=== PATIENT | male | born 1970 | race Caucasian/White ===

== ENCOUNTER 2021-09-22 09:00 | Day surgery (SDC) | payer MEDICARE ==
[~2021-09-22] VITALS: Ht 177.8 cm; Wt 90.9 kg
[~2021-09-22 09:00] MED LIST: LIDOcaine Viscous 15ml cup ONE; MIDAZolam 1 MG/ML 5ML VIAL ONE; diphenhydrAMINE 50 mg/ml inj ONE; fentaNYL/PF 50MCG/1 ML 2ML syringe ONE
[2021-09-22 09:20] VITALS: BP 115/81
[2021-09-22] MEDS ORDERED: viagra PO (09:51)
[2021-09-22] MEDS ORDERED: BACL20TA PO (09:52)
[2021-09-22] MEDS ORDERED: CLON0.3T PO (09:56)
[2021-09-22] MEDS ORDERED: TRIA1CAP88 PO (09:57)
[2021-09-22] MEDS ORDERED: LORA-269 PO (09:58)
[2021-09-22] MEDS ORDERED: norco 10/325 PO (10:07)
[2021-09-22] MEDS ORDERED: HYDR-3965 PO (10:09)
[2021-09-22 10:10] VITALS: BP 113/82
[2021-09-22] MEDS ORDERED: POTA10TA21 PO (10:10)
[2021-09-22] MEDS ORDERED: METO50TA16 (10:11)
[2021-09-22] MEDS ORDERED: RISEDRONATE (10:12)
[2021-09-22] MEDS ORDERED: benedryl (10:12)
[2021-09-22] MEDS ORDERED: ESOM20CA PO (10:13)
[2021-09-22] MEDS ORDERED: ASPI-611 PO (10:13)
[2021-09-22] MEDS ORDERED: MELA5TAB12 PO (10:14)
[2021-09-22] MEDS ORDERED: [UNRECOGNIZED DRUG - CODE] PO (10:14)
[2021-09-22] MEDS ORDERED: OMEG-79 PO (10:15)
[2021-09-22 10:20] VITALS: BP 119/82
[2021-09-22 10:30] VITALS: BP 122/81
[2021-09-22 10:40] VITALS: BP 120/74
== END 2021-09-22 11:10 | disposition home or self-care (01) ==
LOC: GI LAB 09:00
PROVIDERS: ATTEND Internal Medicine Gastroenterology
DX: R10.13 Epigastric pain (principal); R12 Heartburn; K92.1 Melena; K29.51 Unspecified chronic gastritis with bleeding; I10 Essential (primary) hypertension; G82.20 Paraplegia, unspecified; F17.210 Nicotine dependence, cigarettes, uncomplicated; K74.60 Unspecified cirrhosis of liver; Z88.8 Allergy status to other drugs, medicaments and biological substances; Z88.1 Allergy status to other antibiotic agents; Z79.899 Other long term (current) drug therapy
CPT/HCPCS: 43239; G0500; J1200; J2250; J3010; J7030; Z7512; 99152; A4620

== ENCOUNTER 2025-01-02 10:52 | Day surgery (SDC) | payer MEDICARE ==
[~2025-01-02] VITALS: Ht 177.8 cm; Wt 90.9 kg
[2025-01-02] VITALS (10 sets, daily range): BP systolic 95–142; BP diastolic 70–100; PULSE 64–79; RESP 13–17; TEMP 98.1; O2SAT 93–97
[~2025-01-02 10:52] MED LIST changes: +ASPI-611 PO; +BACL20TA PO; +CLON0.3T PO; +ESOM20CA PO; +HYDR-3965 PO; -LIDOcaine Viscous 15ml cup ONE; +LORA-269 PO; +MELA5TAB12 PO; +METO50TA16 PO; -MIDAZolam 1 MG/ML 5ML VIAL ONE; +OMEG-79 PO; +RISEDRONATE; +TRIA1CAP88 PO; +[UNRECOGNIZED DRUG - CODE] PO; +[UNRECOGNIZED DRUG - CODE] PO; +benedryl; -diphenhydrAMINE 50 mg/ml inj ONE; -fentaNYL/PF 50MCG/1 ML 2ML syringe ONE; +norco 10/325 PO; +viagra PO
--- NOTE | 2025-01-02 11:30 | ELECTROCARDIOGRAPH REPORT ---
[facility] Test Date: 2025-01-02 Test Time: 11:27:52 Pat Name: NICK ROBLEDO Department: [facility] Patient ID: [id number] Room: Gender: M Improvement Intern: : 1970 Requested By: MARCELINA WELLINGTON Order Number: [id number] Reading MD: Dr. QUINTIN Wellington Measurements Intervals [place] Rate: 74 P: 49 VT: 130 QRS: 62 QRSD: 92 T: 46 QT: 390 QTc: 433 Interpretive Statements Sinus rhythm Electronically Signed On 01-02-2025 14:44:[address] QUINTIN Wellington Please click the below link to view image of tracing.
[2025-01-02] MEDS ORDERED: TRAZ-256 PO (11:45)
[2025-01-02] MEDS ORDERED: POTA10CA95 PO (11:45)
[2025-01-02] MEDS ORDERED: FURO40TA4 PO (11:45)
[2025-01-02] MEDS ORDERED: SPIR100T5 PO (11:45)
[2025-01-02] MEDS ORDERED: METAMUCIL (11:58)
[2025-01-02] MEDS ORDERED: ASCO100T10 (11:58)
[2025-01-02] MEDS ORDERED: LOPE-190 PO (11:58)
[2025-01-02] MEDS ORDERED: DIPH25TA62 PO (11:58)
[2025-01-02] MEDS ORDERED: DENO60DI SUBCUT (11:58)
[2025-01-02] MEDS ORDERED: SILD25TA PO (11:58)
[2025-01-02] MEDS ORDERED: MILK THISTLE (11:58)
[2025-01-02] MEDS ORDERED: [UNRECOGNIZED DRUG - OTHER] (11:58)
[2025-01-02] MEDS ORDERED: MAGN100T5 PO (11:58)
[2025-01-02] MEDS ORDERED: PROBIOTIC (11:58)
[2025-01-02] MEDS ORDERED: GLUC-193 (11:58)
[2025-01-02] MEDS ORDERED: CLOT10TR5 PO (11:58)
[2025-01-02] MEDS ORDERED: MULT-1085 PO (11:58)
[2025-01-02 12:15] LABS: MEAN PLATELET VOLUME 7.2 FL (7.4-10.4); RED CELL DISTRIBUTION WIDTH 19.4 % (11.5-14.5)
[2025-01-02 12:23] LABS: CREATININE 0.61 MG/DL (0.60-1.10); TOTAL CARBON DIOXIDE 29.5 MMOL/L (24-32); eCRCL 145 ML/MIN; eGFR > 90 ML/MIN
[2025-01-02] MEDS ORDERED: LIDOcaine 1% (10mg/ml) 2ml vial ONE (12:23)
[2025-01-02] MEDS ORDERED: verapamil 2.5 mg/ml inj IV ONE (12:23)
[2025-01-02] MEDS ORDERED: midazolam 1 mg/ML 2ml injection ONE (12:24)
[2025-01-02] MEDS ORDERED: iohexol 350 MG/ML 50ML vial IV ONE (12:24)
[2025-01-02] MEDS ORDERED: fentaNYL/PF 50MCG/1 ML 2ML syringe ONE (12:24)
[2025-01-02] MEDS ORDERED: heparin 1,000unit/ml 10ml vial 10 ML ONE (12:24)
[2025-01-02 12:26] LABS: APTT 31 SECONDS (22-32); INR 1.2 INR
[2025-01-02 12:30] LABS: LARGE PLATELETS FEW; PLATELET ESTIMATE NORMAL
[2025-01-02] MEDS ORDERED: nitroGLYCERIN 500mcg/5mL D5W 5 ML IV ONE (12:30)
[2025-01-02 14:49] LABS: ISTAT HGB ART 11.6 g/dl (14.0-17.9); ISTAT Hct ART 34 %PCV (42-52); ISTAT O2 SATURATION ARTERIAL 96 % (95-98); ISTAT SOURCE BLNK
[2025-01-02 14:49] LABS: ISTAT HGB MIX 11.2 g/dl (14.0-17.9); ISTAT Hct MIX 33 %PCV (42-52); ISTAT O2 SATURATION MIX VENOUS 57 % (60-80); ISTAT SOURCE BLNK
[2025-01-02] MEDS ORDERED: normal saline 1000ml 1,000 ML IV SCH (14:50)
[2025-01-02] MEDS ORDERED: HYDROcodone/acetaminophen 5mg/325mg tablet PO PRN (14:50)
[2025-01-02] MEDS ORDERED: HYDROcodone/acetaminophen 10/325mg tab PO PRN (14:50)
--- NOTE | 2025-01-03 08:09 | CARDIOLOGY REPORT ---
DATE OF SERVICE: 01/02/2025 DICTATING PHYSICIAN: QUINTIN Gross MD GENDER: Male. AGE: 54 years. HEIGHT: 178 cm. WEIGHT: 90.19 kg. BODY SURFACE AREA: 2.09 m2. INDICATION: A 54-year-old male with obesity, history of paraplegia, nonobstructive CAD, seizure disorder, hyperlipidemia, cirrhosis, insomnia, and osteoporosis. PRIMARY DOCTOR: Dr. Uriostegui in [place]. 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 He is currently wheelchair dependent. He uses marijuana every day. History of alcohol abuse, now a social drinker. Apparently, he had a CT with contrast, which had shown some CAD evidence and he had a myocardial perfusion scan, which showed fixed defect, no reversibility, distal septal hypokinesis; however, in view of his fatigue, shortness of breath, the patient prefers to have definitive evaluation. Risks, benefits, and alternative options were discussed. Informed consent was obtained. PROCEDURE TECHNIQUE: The patient underwent right heart catheterization from right antecubital approach, a 6-Uk[place] sheath. Post-procedure access site hemostasis secured with manual compression. The patient had a left heart catheterization from right radial approach, 6-[place]rainian right radial sheath. Post-procedure access site hemostasis secured with right radial band. The patient tolerated the procedure well. COMPLICATION: None. PROCEDURES DONE: 1. Ultrasound-guided right radial artery visualization and access. 2. Right heart catheterization. 3. Left heart catheterization. 4. LVG. 5. Coronary cineangiography. 6. Conscious sedation time of 45 minutes. FINDINGS: HEMODYNAMICS: Aortic systolic 101 mmHg, diastolic 67 mmHg, mean 82 mmHg. LVEDP of 18 mmHg. There is no significant gradient across the aortic valve. Right atrial mean 4 mmHg, RV 18/4 mmHg, PA 24/11 mmHg, pulmonary capillary 6 mmHg, aortic oxygen saturation 96%, pulmonary arterial oxygen saturation 57%. Cardiac output by thermodilution method is 5.52 L/min. Cardiac index was 2.64 L/min/m2. LEFT VENTRICULOGRAM: Overall left ventricular systolic function normal with LV ejection fraction of about 65% to 70%. CORONARY CINEANGIOGRAPHY: JL4 and JL3.5 did not give adequate engagement coming from right radial approach. Brachiocephalic trunk arises more from the left side of the aortic arch, which added an additional tortuosity and difficulty in torquiability of the catheters. We were able to engage the left main coronary artery with XP3 guide. Left main is a large caliber, arising from the left aortic sinus with minimal luminal irregularities. Very short left main. LAD is a medium caliber vessel arising at the trifurcation of left main coronary artery, courses through the anterior interventricular groove, ends by wrapping around the apex. Diagonal is 2 mm caliber with mild luminal irregularities. Ramus is 2.75 mm with mild luminal irregularities. Circumflex artery is a small nondominant vessel arising at the trifurcation, continues as OM, which is a 2 mm with minimal luminal irregularities. Right coronary artery is a medium caliber dominant vessel, arising at the right aortic sinus, courses through the right AV groove and ends at the posterior crux by dividing into PDA and posterolateral branches. Proximal RCA has 40% and mid distal RCA at the junction of mid low one-third has 60% narrowing. Remainder of the RCA shows mild luminal irregularities. IMPRESSION: 1. A 54-year-old male with an ejection fraction of 65% to 70%. 2. Left ventricular end-diastolic pressure of 18 mmHg with no significant gradient across the aortic valve. 3. Pulmonary capillary wedge pressure 6 mmHg. 4. Pulmonary artery pressure of 24/11 mmHg. 5. Left main normal. 6. Left anterior descending with areas of 20% to 30% narrowing in the proximal midportion. 7. Ramus and circumflex with minimal disease. 8. Codominant artery with proximal 40% and mid distal 60% narrowing at the junction of middle one-third and distal one-third. RECOMMENDATIONS: Recommend continued aggressive coronary risk factor modification, namely low-fat, low-cholesterol diet, maintaining ideal body weight, keeping LDL less than 70 mg percent, regular exercise program. QUINTIN Gross MD TID: [id number] RECEIPT: [id number] /[facility] cc: David Uriostegui MD [facility]
== END 2025-01-02 18:10 | disposition home or self-care (01) ==
LOC: SSTAY O 10:52
PROVIDERS: ATTEND Internal Medicine Cardiovascular Disease
DX: R94.39 Abnormal result of other cardiovascular function study (principal); I25.10 Atherosclerotic heart disease of native coronary artery without angina pectoris; R53.83 Other fatigue; I10 Essential (primary) hypertension; E78.5 Hyperlipidemia, unspecified; E66.3 Overweight; M81.0 Age-related osteoporosis without current pathological fracture; G47.00 Insomnia, unspecified; Z79.82 Long term (current) use of aspirin; Z79.891 Long term (current) use of opiate analgesic; Z79.899 Other long term (current) drug therapy; Z98.890 Other specified postprocedural states; Z68.28 Body mass index [BMI] 28.0-28.9, adult
CPT/HCPCS: 80048; 82803; 85014; 85025; 85610; 85730; 93005; 93460; 99152; 99153; A6258; A6402; C1725; C1751; C1894; J1644; J2003; J2250; J3010; J3490; J7030; Q0163; Q9967; Z7610; 76937; 85008; A6449